=== PATIENT | female | born 1945 | race Caucasian/White ===

== ENCOUNTER 2017-03-26 14:09 | Outpatient (CLI) | payer MEDICARE, OTHER ==
[2017-03-26 14:50] LABS: Glucose 102 mg/dL (83-110)
[2017-03-26 14:53] LABS: Hemoglobin A1c 5.7 % (4.0-6.0)
[2017-03-26 15:21] LABS: Free T4 (Free Thyroxine) 0.89 ng/dL (0.70-1.48); Thyroid Stimulating Hormone 0.6257 uIU/mL (0.35-4.94)
== END 2017-03-26 14:10 ==
LOC: HPCALD 14:09
PROVIDERS: ATTEND Family Medicine
DX: R73.9 Hyperglycemia, unspecified (principal); G57.93 Unspecified mononeuropathy of bilateral lower limbs; G60.9 Hereditary and idiopathic neuropathy, unspecified
CPT/HCPCS: 36415; 82607; 82947; 83036; 84439; 84443; 86592